=== PATIENT | male | born 1985 | race Caucasian/White ===

== ENCOUNTER 2020-06-09 14:30 | Outpatient (REF) | payer OTHER, SELFPAY | END 2020-06-09 14:31 | disposition home or self-care (01) | LOC: HO.LAB 14:30 | PROVIDERS: Visit Provider Internal Medicine | DX: Z20.828 Contact with and (suspected) exposure to other viral communicable diseases (principal) | CPT/HCPCS: C9803; U0003 ==

== ENCOUNTER 2020-09-20 15:42 | Outpatient (REF) | payer OTHER, SELFPAY ==
[2020-09-21 09:21] LABS: SARS COV2 PCR INHOUSE NEGATIVE (Negative)
== END 2020-09-20 15:43 | disposition home or self-care (01) ==
LOC: HO.LAB 15:42
PROVIDERS: Visit Provider Internal Medicine
DX: Z20.822 Contact with and (suspected) exposure to COVID-19 (principal)
CPT/HCPCS: C9803; U0003

== ENCOUNTER 2020-09-23 09:57 | Outpatient (REF) | payer OTHER, SELFPAY ==
[2020-09-23 12:19] LABS: COVID-19 Test Negative (Negative)
== END 2020-09-23 09:58 | disposition home or self-care (01) ==
LOC: HO.LAB 09:57
PROVIDERS: Visit Provider Internal Medicine
DX: Z20.822 Contact with and (suspected) exposure to COVID-19 (principal)
CPT/HCPCS: 36415; 87635; C9803

== ENCOUNTER 2020-11-16 10:35 | Outpatient (REF) | payer OTHER, SELFPAY ==
[2020-11-16 10:57] LABS: COVID-19 Test Negative (Negative)
== END 2020-11-16 10:36 | disposition home or self-care (01) ==
LOC: HO.LAB 10:35
PROVIDERS: Visit Provider Internal Medicine
DX: Z20.822 Contact with and (suspected) exposure to COVID-19 (principal)
CPT/HCPCS: 36415; 87635; C9803

== ENCOUNTER 2021-01-05 12:40 | Outpatient (REF) | payer OTHER, SELFPAY | END 2021-01-05 12:41 | disposition home or self-care (01) | LOC: HO.LAB 12:40 | PROVIDERS: Visit Provider Internal Medicine | DX: Z20.822 Contact with and (suspected) exposure to COVID-19 (principal) | CPT/HCPCS: C9803; U0003; U0005 ==

== ENCOUNTER 2021-05-22 10:56 | Outpatient (REF) | payer OTHER, SELFPAY ==
[2021-05-22 12:18] LABS: COVID-19 Test Negative (Negative)
== END 2021-05-22 10:57 | disposition home or self-care (01) ==
LOC: HO.LAB 10:56
PROVIDERS: Visit Provider Internal Medicine
DX: Z20.822 Contact with and (suspected) exposure to COVID-19 (principal)
CPT/HCPCS: 36415; 87635; C9803

== ENCOUNTER 2021-07-03 14:23 | Outpatient (REF) | payer OTHER, SELFPAY ==
[2021-07-03 15:23] LABS: COVID-19 Test Negative (Negative)
== END 2021-07-03 14:24 | disposition home or self-care (01) ==
LOC: HO.LAB 14:23
PROVIDERS: Visit Provider Internal Medicine
DX: Z20.822 Contact with and (suspected) exposure to COVID-19 (principal)
CPT/HCPCS: 87635; C9803

== ENCOUNTER 2021-07-10 14:28 | Outpatient (REF) | payer OTHER, SELFPAY ==
[2021-07-10 15:05] LABS: Binax Internal Control QC Valid; Binax Now Covid-19 Ag Negative (Negative)
== END 2021-07-10 14:29 | disposition home or self-care (01) ==
LOC: HO.LAB 14:28
PROVIDERS: Visit Provider Internal Medicine
DX: Z20.822 Contact with and (suspected) exposure to COVID-19 (principal)
CPT/HCPCS: C9803